=== PATIENT | female | born 1970 | race Caucasian/White ===

== ENCOUNTER → 2018-03-13 | Outpatient (CLI) | payer BC ==
--- NOTE | 2018-03-13 08:59 | MM ---
Reason for exam: screening (asymptomatic). Baseline mammogram. Physical Findings: Nurse did not find any significant physical abnormalities on exam. MG Screening Mammo w CAD Bilateral CC and MLO view(s) were taken. There are scattered fibroglandular densities. No suspicious abnormality. These results were verbally communicated with the patient and result sheet given to the patient on 03/13/18. ASSESSMENT: Negative, BI-RAD 1 RECOMMENDATION: Routine screening mammogram of both breasts in 1 year.
== END | disposition home or self-care (01) ==
LOC: RADMAMWWP 08:12
PROVIDERS: ATTEND Internal Medicine
DX: Z12.31 Encounter for screening mammogram for malignant neoplasm of breast (principal)
CPT/HCPCS: 77067

== ENCOUNTER 2018-07-26 12:50 | Emergency (ER) | payer BC, OTHER ==
[2018-07-26 13:20] VITALS: BP 118/62; PULSE 83; RESP 18; TEMP 98.3
--- NOTE | 2018-07-26 14:17 | ED ---
Lower Extremity Injury HPI - General Chief Complaint: Extremity Injury, Lower Stated Complaint: ankle injury Time Seen by Provider: 07/26/18 13:23 Source: patient, RN notes reviewed, old records reviewed Mode of arrival: wheelchair Limitations: no limitations - History of Present Illness Initial Comments: Patient is a 47-year-old female presents emergency Department chief complaint of left foot and ankle pain. Patient reports that she was walking yesterday and tripped over an uneven surface outside. Patient states that she is having significant swelling and pain to the ankle. Patient ports she's had no previous injuries to this ankle. She denies any peripheral paresthesias. Patient states that she's had no other plans or symptoms. - Related Data Home Medications Medication Instructions Recorded Confirmed Cholecalciferol [Vitamin D3] 5,000 unit PO DAILY 07/26/18 07/26/18 Citalopram Hydrobromide [CeleXA] 10 mg PO DAILY 07/26/18 07/26/18 Losartan/Hydrochlorothiazide 1 tab PO DAILY 07/26/18 07/26/18 [Losartan-Hctz 100-25 mg Tab] Spironolactone [Aldactone] 25 mg PO DAILY 07/26/18 07/26/18 Verapamil HCl [Verapamil ER] 240 mg PO DAILY 07/26/18 07/26/18 hydrALAZINE HCL 25 mg PO BID 07/26/18 07/26/18 Allergies Allergy/AdvReac Type Severity Reaction Status Date / Time No Known Allergies Allergy Verified 07/26/18 13:59 Review of Systems ROS Statement: Those systems with pertinent positive or pertinent negative responses have been documented in the HPI. ROS Other: All systems not noted in ROS Statement are negative. Past Medical History Past Medical History: Hypertension History of Any Multi-Drug Resistant Organisms: None Reported Past Surgical History: Tubal Ligation Past Psychological History: Anxiety Smoking Status: Never smoker Past Alcohol Use History: None Reported Past Drug Use History: None Reported General Exam - General Exam Comments Initial Comments: 47-year-old female. Alert and oriented. No significant distress. Limitations: no limitations General appearance: alert, in no apparent distress Head exam: Present: atraumatic, normocephalic, normal inspection Eye exam: Present: normal appearance, PERRL, EOMI. Absent: scleral icterus, conjunctival injection, periorbital swelling ENT exam: Present: normal exam, mucous membranes moist Neck exam: Present: normal inspection. Absent: tenderness, meningismus, lymphadenopathy Respiratory exam: Present: normal lung sounds bilaterally. Absent: respiratory distress, wheezes, rales, rhonchi, stridor Cardiovascular Exam: Present: regular rate, normal rhythm, normal heart sounds. Absent: systolic murmur, diastolic murmur, rubs, gallop, clicks GI/Abdominal exam: Present: soft, normal bowel sounds. Absent: distended, tenderness, guarding, rebound, rigid Extremities exam: Present: normal inspection, full ROM, normal capillary refill. Absent: tenderness, pedal edema, joint swelling, calf tenderness Left Knee exam: Present: normal inspection, full ROM Lower Leg exam: Present: normal inspection Ankle exam: Present: tenderness (over lateral and medial malleoulus), swelling, ecchymosis (over lateral malleolus). Absent: normal inspection Foot/Toe exam: Present: normal inspection, full ROM Neurovascular tendon exam: Present: no vascular compromise Gait: observed and limited by pain Back exam: Present: normal inspection Neurological exam: Present: alert, oriented X3, CN II-XII intact Psychiatric exam: Present: normal affect, normal mood Skin exam: Present: warm, dry, intact, normal color. Absent: rash Course Vital Signs 07/26/18 13:17 Temperature 98.3 F Pulse Rate 83 Respiratory 18 Rate Blood Pressure 118/62 O2 Sat by Pulse 98 Oximetry Procedures - Orthopedic Splinting/Casting Injury #1 Side: left Lower Extremity Injury Location: ankle Lower Extremity Immobilizer: stirrup splint, Bin wrap, synthetic pre-padded splint Other Orthopedic Equipment: crutches Medical Decision Making - Medical Decision Making Patient is a 47-year-old female presents emergency Department chief complaint of left foot and ankle pain. Patient reports that she was walking yesterday and tripped over an uneven surface outside. Patient states that she is having significant swelling and pain to the ankle. Patient is tender and has significant swelling over lateral malleoulus and medial malleolus. Patient has normal sensation and pulses. Patient xrays were negative for acute fracture. Patient has significant sprain. Discussed using splint to stablize ankle and to ambulate with crutches. RICE instructions and return parameters discussed. Discussed ortho followup. - Radiology Data Radiology results: report reviewed No acute fracture of ankle or foot. Disposition Clinical Impression: Left ankle sprain Disposition: HOME SELF-CARE Condition: Good Instructions: Ankle Sprain (ED) Additional Instructions: Patient is follow-up with primary care provider. Follow-up with department specialist if symptoms continue to persist. Fidelina with the splint. Return to emergency department if any alarming signs or symptoms occur. Is patient prescribed a controlled substance at d/c from ED?: No Referrals: Prosper Yen MD [Primary Care Provider] - 1-2 days Girish Hardwick MD [STAFF PHYSICIAN] - 1-2 days Time of Disposition: 16:00
--- NOTE | 2018-07-26 15:22 | XR ---
EXAMINATION TYPE: XR ankle complete LT, XR foot complete LT DATE OF EXAM: 07/26/2018 CLINICAL HISTORY: Pain and swelling for one day after fall injury. TECHNIQUE: Frontal, lateral and oblique images of the left ankle and foot are obtained. COMPARISON: None. FINDINGS: There is no acute fracture/dislocation evident in the left ankle. The ankle mortise appea rs within normal limits. There is mild to moderate soft tissue swelling. An os trigonum is seen post erior to talus. There is no acute fracture or dislocation evident in the left foot. Mild spurring from medial malleol us is present. There is tiny superior calcaneal spur and moderate size inferior calcaneal spur. Mild to moderate spurring dorsal surface midfoot level is present. Overlying soft tissue is unremarkable. IMPRESSION: There is no acute fracture or dislocation in the left ankle or foot.
== END 2018-07-26 16:05 | disposition home or self-care (01) ==
LOC: EC 12:50
DX: S93.402A Sprain of unspecified ligament of left ankle, initial encounter (principal); I10 Essential (primary) hypertension; F41.9 Anxiety disorder, unspecified; Z79.899 Other long term (current) drug therapy; W01.0XXA Fall on same level from slipping, tripping and stumbling without subsequent striking against object, initial encounter; Y93.01 Activity, walking, marching and hiking; Y92.89 Other specified places as the place of occurrence of the external cause
CPT/HCPCS: 29515; 99284

== ENCOUNTER → 2020-10-24 | Outpatient (CLI) | payer BC, OTHER ==
--- NOTE | 2020-10-26 09:58 | MM ---
Reason for exam: screening (asymptomatic). Last mammogram was performed 2 years and 7 months ago. History: Took hormonal contraceptives for 3 years. Physical Findings: A clinical breast exam by your physician is recommended on an annual basis and results should be correlated with mammographic findings. MG Screening Mammo w CAD Bilateral CC and MLO view(s) were taken. Prior study comparison: March 13, 2018, bilateral MG screening mammo w CAD. There are scattered fibroglandular densities. New nodular asymmetric densities lateral anterior right CC and medial anterior left CC. ASSESSMENT: Incomplete: need additional imaging evaluation, BI-RAD 0 RECOMMENDATION: Special view mammogram of both breasts. (3D) If lesion persists on supplemental views, image directed ultrasound is recommended. [facility] will attempt to contact patient to return for supplemental views and ultrasound if indicated.
== END | disposition home or self-care (01) ==
LOC: RADMAMWWP 16:49
PROVIDERS: ATTEND Obstetrics & Gynecology
DX: Z12.31 Encounter for screening mammogram for malignant neoplasm of breast (principal)
CPT/HCPCS: 77067

== ENCOUNTER → 2020-11-07 | Outpatient (CLI) | payer BC, OTHER ==
--- NOTE | 2020-11-07 11:30 | MM ---
Reason for exam: additional evaluation requested from abnormal screening. Last mammogram was performed less than 1 month ago. History: Took hormonal contraceptives for 3 years. Physical Findings: Nurse did not find any significant physical abnormalities on exam. MG Work Up Mamm w CAD BILAT Bilateral spot compression CC view(s) were taken. ML view(s) were taken of the right breast. LM view(s) were taken of the left breast. Prior study comparison: October 24, 2020, bilateral MG screening mammo w CAD. March 13, 2018, bilateral MG screening mammo w CAD. There are scattered fibroglandular densities. Lateral anterior asymmetric density on the right becomes less defined on spot. Medial asymmetric density on the left also becomes less defined but there is an overlying blood vessel. These results were verbally communicated with the patient and result sheet given to the patient on 11/07/20. ASSESSMENT: Incomplete: need additional imaging evaluation, BI-RAD 0 RECOMMENDATION: Ultrasound of both breasts. (right upper outer quadrant, left medial)
--- NOTE | 2020-11-07 11:34 | USB ---
Reason for exam: additional evaluation requested from abnormal screening. History: Took hormonal contraceptives for 3 years. US Breast Workup Limited NAVEEN Right complete breast ultrasound includes all four quadrants, the retroareolar region and axilla. Finding demonstrates a 3 x 2 x 3mm hypoechoic lesion at 8 o'clock 6 month follow up recommended pending biopsy results at 10 o'clock and a 18 x 5 x 5mm oval, hypoechoic lesion at 10 o'clock, appears vertically oriented in the antiradial plane, biopsy recommended. Left limited breast ultrasound including focal area of concern, retroareolar and axilla demonstrates no cystic or solid lesion seen. Scanned medial half. These results were verbally communicated with the patient and result sheet given to the patient on 11/07/20. ASSESSMENT: Suspicious, BI-RAD 4 RECOMMENDATION: Ultrasound core biopsy of the right breast. (10:00) Called Dr. Hernandez's office with mammographic findings and has scheduled an appointment for the patient for 11/25/20 at 3:[address] Anguiano. Biopsy scheduled for 11/16/20 at 7:00. PRELIMINARY REPORT CALLED AND FAXED TO DR. ANGUIANO ON 11/07/20.
== END | disposition home or self-care (01) ==
LOC: RADMAMWWP 08:38
PROVIDERS: ATTEND Obstetrics & Gynecology
DX: R92.8 Other abnormal and inconclusive findings on diagnostic imaging of breast (principal)
CPT/HCPCS: 77066

== ENCOUNTER → 2020-11-16 | Day surgery (SDC) | payer BC ==
[2020-11-16 08:04] VITALS: RESP 18
[2020-11-16 09:10] VITALS: BP 120/78; PULSE 77; TEMP 98.6
--- NOTE | 2020-11-16 12:01 | USB ---
EXAMINATION TYPE: US biopsy breast VAD RT DATE OF EXAM: 11/16/2020 CLINICAL HISTORY: R92.8 Previous Abnormal Mammogram. TECHNIQUE: Ultrasound guided vaccuum assisted core biopsy of right breast. COMPARISON: NONE FINDINGS: The ultrasound guided core biopsy procedure was explained to the patient. The risks, benefits, alternatives were discussed. An informed consent was then obtained. Timeout was performed. The patient was placed in supine positioning for imaging and for the procedure. The overlying skin was prepped with betadine and sterilely draped in usual sterile fashion. Lidocaine 1% was used as anesthetic into the skin and deeper breast tissue up to area of concern in the breast. A small skin nallely was made with surgical scalpel. Under ultrasound guidance, a 12-gauge vacuum assisted biopsy device was used to obtain 6 core samples. A biopsy clip was left in lesion. Wing clip was placed at the biopsy site. Good hemostasis was obtained with direct pressure. Discharge instructions were discussed with the patient. The patient will follow up with the referring physician for results. Postprocedure mammogram: The patient was transferred to mammography for physician ordered post procedure mammogram for clip placement verification. The clip is in the expected region of the biopsy. The patient tolerated the procedure well without any immediate complication. The patient was discharged to home in stable condition. IMPRESSION: 1. Successful ultrasound guided biopsy right breast. Pathology Results: Benign RIGHT BREAST, TEN O'CLOCK, CORE BIOPSY: Stromal fibrosis with mild usual ductal hyperplasia and rare favored minute luminal microcalcification. Negative for in situ or invasive malignancy. Recommendation Follow up ultrasound of the right breast in 6 months. JULIANO
--- NOTE | 2020-11-16 13:12 | MM ---
Reason for exam: additional evaluation requested from abnormal screening. Last mammogram was performed less than 1 month ago. History: Took hormonal contraceptives for 3 years. MG Diagnostic Mammo RT Wo CAD CC and LM view(s) were taken of the right breast. Prior study comparison: November 07, 2020, bilateral MG work up mamm w CAD BILAT. October 24, 2020, bilateral MG screening mammo w CAD. ASSESSMENT: Post procedure mammogram for marker placement RECOMMENDATION: Ultrasound of the right breast in 6 months. PENDING PATHOLOGY RESULTS.
== END ==
LOC: RADUSWWP 07:26
PROVIDERS: ATTEND Surgery
DX: N60.31 Fibrosclerosis of right breast (principal); Z79.3 Long term (current) use of hormonal contraceptives
CPT/HCPCS: 88305; 77065; 19083; A4648; J2001

== ENCOUNTER → 2020-11-25 | Outpatient (CLI) | payer BC ==
[2020-11-25 15:15] VITALS: BP 131/88; PULSE 78; RESP 18; TEMP 98.2
--- NOTE | 2020-11-25 15:48 | P.GSHP ---
History of Present Illness H&P Date: 11/25/20 Chief Complaint: Core biopsy right breast/fibrocystic changes Nemo Is a 50-year-old white female seen in consultation for Dr. Hernandez who underwent a bilateral mammogram on . The mammogram revealed scattered fibroglandular densities. An ultrasound of both breast was recommended. Ultrasound was performed on the same day. The right breast revealed at the 10 o'clock position an 18 x 5 x 5 mm hypoechoic lesion appearing vertically oriented for which core biopsy was recommended. The left breast did not reveal any lesions of concern. The patient underwent a right breast ultrasound-guided core biopsy on 2320. Pathology revealed stromal fibrosis with mild usual ductal hyperplasia and repair luminal microcalcifications. This was negative for in situ or invasive malignancy. The ultrasound was reviewed with Dr. Hilario who felt that the lesion of concern had been adequately sampled and this was benign specific. The patient had not felt anything in her breast previous to the radiographs. She does not feel anything of concern in her breast at this time. She is not complaining of any nipple discharge or skin changes. She complains of some mild breast discomfort since the biopsy but otherwise has not been complaining of any pain in her breast. She is not complaining of any nipple discharge or skin changes. She has not had any recent trauma or infection in the breast. Caffeine: 1 cup coffee/day nicotine: none lois-bromine: occasional Family history: mother: kidney and lung cancer maternal grandmother: cancer ? type paternal uncle: throat cancer Hormonal history: Menarche: 14 breast fed: no, age at first : 21 periods irregular BCP: 2 year Surgical History: tubal Medical Histoy: HTN pre-diabetic Social History: smoke: none alcohol: seasonal drugs: none - Constitutional Constitutional: Denies chills, Denies fever - EENT Eyes: denies blurred vision, denies pain Ears: deny: decreased hearing, tinnitus Ears, nose, mouth and throat: Denies headache, Denies sore throat - Breasts Breasts: bilateral: as per HPI - Cardiovascular Cardiovascular: Denies chest pain, Denies shortness of breath - Respiratory Respiratory: Denies cough, Denies 7 - Gastrointestinal Gastrointestinal: Denies abdominal pain, Denies diarrhea, Denies nausea, Denies vomiting - Genitourinary (Female) Genitourinary: Reports kidney stones, Denies dysuria, Denies hematuria - Menstruation Menstruation: Reports period normal - Musculoskeletal Musculoskeletal: Denies myalgias - Integumentary Integumentary: Denies pruritus, Denies rash - Neurological Neurological: Reports numbness, Denies weakness - Psychiatric Psychiatric: Reports anxiety, Reports depression - Endocrine Endocrine: Denies fatigue, Denies weight change - Hematologic/Lymphatic Hematologic/Lymphatic: Reports as per HPI - Allergic/Immunologic Allergic/Immunologic: Reports as per HPI Past Medical History Past Medical History: Hypertension History of Any Multi-Drug Resistant Organisms: None Reported Past Surgical History: Tubal Ligation Past Anesthesia/Blood Transfusion Reactions: No Reported Reaction Past Psychological History: Anxiety, Depression Smoking Status: Never smoker Past Alcohol Use History: Occasional Past Drug Use History: None Reported Medications and Allergies Home Medications Medication Instructions Recorded Confirmed Type Cholecalciferol [Vitamin D3] 2,000 unit PO DAILY 07/26/18 11/25/20 History Citalopram Hydrobromide [CeleXA] 10 mg PO DAILY 07/26/18 11/25/20 History Losartan/Hydrochlorothiazide 1 tab PO DAILY 07/26/18 11/25/20 History [Losartan-Hctz 100-25 mg Tab] Spironolactone [Aldactone] 25 mg PO DAILY 07/26/18 11/25/20 History Verapamil HCl [Verapamil ER] 240 mg PO DAILY 07/26/18 11/25/20 History hydrALAZINE HCL 25 mg PO BID 07/26/18 11/25/20 History [place]-3 Fatty Acids/Fish Oil [Fish 1 each PO DAILY 11/08/20 11/25/20 History Oil 1,000 mg Softgel] Allergies Allergy/AdvReac Type Severity Reaction Status Date / Time No Known Allergies Allergy Verified 11/25/20 15:11 Surgical - Exam Vital Signs Temp Pulse Resp BP Pulse Ox 98.2 F 78 18 131/88 100 11/25/20 15:13 11/25/20 15:13 11/25/20 15:13 11/25/20 15:13 11/25/20 15:13 BMI 48.5 - General no distress - Eyes normal ocular movement - ENT normal nares, no hearing loss - Neck no masses, trachea midline - Respiratory normal expansion, normal respiratory effort, clear to auscultation - Cardiovascular Rhythm: regular Heart Sounds: normal: S1, S2 - Abdomen Abdomen: soft, bowel sounds - Integumentary normal turgor - Neurologic no disoriented, no combative - Musculoskeletal normal gait - Psychiatric oriented to time, oriented to person, oriented to place, speech is normal, memory intact breast exam: BRA: 42C inspection: Bilateral grade 2/3 ptosis Palpation: Right breast: Multi positional exam fibrocystic changes, biopsy site no evidence of infection or hematoma mild ecchymosis Right axilla: No adenopathy of concern Left breast: Multiple positional exam fibrocystic changes no dominant masses or nodules of concern Left axilla: No adenopathy of concern Results Mammogram and ultrasound results reviewed, review of ultrasound with radiology shows that the needle was in the area of concern and this is benign and concordant Assessment and Plan Assessment: Impression: 1. Patient status post ultrasound core biopsy lesion in the right breast this is benign and felt to be benign concordant 2. Fibrocystic breast changes 3. Family history of cancer 4. Hypertension 5. Prediabetic 6. Probable perimenopausal some fluctuation in most recent menstrual. 7. Patient does drink caffeine Plan: 1.I discussed lifestyle modifications including omitting caffeine, the fact that she is most likely perimenopausal and has hormonal fluctuations, and possibly decreasing her BMI. She will consider these things 2. Repeat right breast mammogram and ultrasound in 6 months with physician exam at that time Cc: Dr. Hernandez Encounter 40 minutes, time spent in reviewing medical records, physical exam, and counselling.
== END | disposition home or self-care (01) ==
LOC: WWCWWP 15:03
PROVIDERS: ATTEND Surgery
DX: Z53.9 Procedure and treatment not carried out, unspecified reason (principal)

== ENCOUNTER → 2021-05-15 | Outpatient (CLI) | payer BC ==
--- NOTE | 2021-05-15 11:22 | MM ---
Reason for exam: follow-up at short interval from prior study. Last mammogram was performed 6 months ago. History: Benign US biopsy breast VAD RT of the right breast, November 16, 2020. Took hormonal contraceptives for 3 years. Physical Findings: Nurse did not find any significant physical abnormalities on exam. MG Diagnostic Mammo RT w CAD CC and MLO view(s) were taken of the right breast. Prior study comparison: November 16, 2020, right breast MG diagnostic mammo RT wo CAD. November 07, 2020, bilateral MG work up mamm w CAD BILAT. There are scattered fibroglandular densities. No significant new findings when compared with previous films. These results were verbally communicated with the patient and result sheet given to the patient on 05/15/21. ASSESSMENT: Incomplete: need additional imaging evaluation, BI-RAD 0 RECOMMENDATION: Ultrasound of the right breast.
--- NOTE | 2021-05-15 11:23 | USB ---
Reason for exam: additional evaluation requested from abnormal screening. History: Benign US biopsy breast VAD RT of the right breast, November 16, 2020. Took hormonal contraceptives for 3 years. US Breast Limited RT Technologist: Bren Flood Right limited breast ultrasound including focal area of concern, retroareolar and axilla demonstrates no cystic or solid lesion seen. Scanned 9-12 o'clock. These results were verbally communicated with the patient and result sheet given to the patient on 05/15/21. ASSESSMENT: Negative, BI-RAD 1 RECOMMENDATION: Return to routine screening mammogram schedule for both breasts. Back on schedule.
== END | disposition home or self-care (01) ==
LOC: RADMAMWWP 09:38
PROVIDERS: ATTEND Surgery
DX: R92.8 Other abnormal and inconclusive findings on diagnostic imaging of breast (principal); Z79.3 Long term (current) use of hormonal contraceptives
CPT/HCPCS: 77065

== ENCOUNTER → 2021-06-16 | Outpatient (CLI) | payer BC ==
[2021-06-16 09:54] VITALS: BP 109/75; PULSE 88; RESP 12; TEMP 98.2
--- NOTE | 2021-06-16 10:28 | P.PN ---
Subjective Progress Note Date: 06/16/21 Principal diagnosis: status post right breast core biopsy on 11-16-20 Nemo Is a 50-year-old white female. She underwent a right breast ultrasound-guided core biopsy on 2320. Pathology revealed stromal fibrosis with mild usual ductal hyperplasia and repair luminal microcalcifications. This was negative for in situ or invasive malignancy. The ultrasound was reviewed with Dr. Hilario who felt that the lesion of concern had been adequately sampled and this was benign specific. She does not feel anything of concern in her breast at this time. She is not complaining of any nipple discharge or skin changes. She is not complaining of any nipple discharge or skin changes. She has not had any recent trauma or infection in the breast. She had a right breast mammogram performed on which is felt to be incomplete and a right breast ultrasound was performed on the same date. This was felt to be benign and the assessment was negative benign BIRADS 1. Return to routine bilateral mammogram in October. Caffeine: 1 cup coffee/day nicotine: none lois-bromine: occasional Family history: mother: kidney and lung cancer maternal grandmother: cancer ? type paternal uncle: throat cancer Hormonal history: Menarche: 14 breast fed: no, age at first : 21 periods irregular BCP: 2 year Surgical History: tubal Medical Histoy: HTN pre-diabetic Social History: smoke: none alcohol: seasonal drugs: none - Constitutional Constitutional: Denies chills, Denies fever - EENT Eyes: denies blurred vision, denies pain Ears: deny: decreased hearing, tinnitus Ears, nose, mouth and throat: Denies headache, Denies sore throat - Breasts Breasts: bilateral: as per HPI - Cardiovascular Cardiovascular: Denies chest pain, Denies shortness of breath - Respiratory Respiratory: Denies cough - Gastrointestinal Gastrointestinal: Denies abdominal pain, Denies diarrhea, Denies nausea, Denies vomiting - Genitourinary (Female) Genitourinary: Reports kidney stones, Denies dysuria, Denies hematuria - Menstruation Menstruation: Reports period normal - Musculoskeletal Musculoskeletal: Denies myalgias - Integumentary Integumentary: Denies pruritus, Denies rash - Neurological Neurological: Reports numbness, Denies weakness - Psychiatric Psychiatric: Reports anxiety, Reports depression - Endocrine Endocrine: Denies fatigue, Denies weight change - Hematologic/Lymphatic Hematologic/Lymphatic: Reports as per HPI - Allergic/Immunologic Allergic/Immunologic: Reports as per HPI Objective - Vital Signs Vital signs: Vital Signs Temp 98.2 F 06/16/21 09:45 Pulse 88 06/16/21 09:45 Resp 12 06/16/21 09:45 BP 109/75 06/16/21 09:45 Pulse Ox 98 06/16/21 09:45 Intake & Output 06/15/21 06/16/21 06/16/21 18:59 06:59 18:59 Weight 113.398 kg - Exam BMI 45.7 - Constitutional General appearance: Present: cooperative - EENT Eyes: Present: EOMI ENT: Present: hearing grossly normal - Neck Neck: Present: normal ROM - Respiratory Respiratory: bilateral: CTA - Cardiovascular Heart sounds: normal: S1, S2 - Integumentary Integumentary: Present: normal turgor - Musculoskeletal Musculoskeletal: Present: gait normal - Psychiatric Psychiatric: Present: A&O x's 3, appropriate affect, intact judgment & insight - Additional findings Additional findings: Breast exam: BRA: 42C inspection: Bilateral grade 3 ptosis Palpation: Right breast: Multiple positional exam fibrocystic changes no dominant masses or nodules of concern Right axilla: No adenopathy of concern Left breast: Multi-positional exam fibrocystic changes predominantly masses or nodules of concern Left axilla: No adenopathy of concern Assessment and Plan Assessment: Impression: 1. Hypertension 2. Prediabetic 3. Fibrocystic breast changes 4. Recent right breast mammogram and ultrasound benign BIRADS 1 Plan: 1. Repeat bilateral mammogram in October with physician exam at that time 2. Patient to call if any questions or concerns Cc: Dr. Hernandez, Dr. Yen
== END ==
LOC: WWCWWP 09:37
PROVIDERS: ATTEND Surgery
DX: N60.11 Diffuse cystic mastopathy of right breast (principal); I10 Essential (primary) hypertension; R73.03 Prediabetes

== ENCOUNTER → 2021-11-10 | Outpatient (CLI) | payer BC ==
--- NOTE | 2021-11-10 08:20 | MM ---
Reason for exam: additional evaluation requested from prior study. Last mammogram was performed 6 months ago. History: Benign US biopsy breast VAD RT of the right breast, November 16, 2020. Took hormonal contraceptives for 3 years. Physical Findings: Nurse did not find any significant physical abnormalities on exam. MG Diagnostic Mammo w CAD NAVEEN Bilateral CC and MLO view(s) were taken. Prior study comparison: May 15, 2021, right breast MG diagnostic mammo RT w CAD. November 16, 2020, right breast MG diagnostic mammo RT wo CAD. There are scattered fibroglandular densities. Previous mammotome biopsy in the right breast. Focal asymmetry right breast. No significant new findings when compared with previous films. These results were verbally communicated with the patient and result sheet given to the patient on 11/10/21. ASSESSMENT: Benign, BI-RAD 2 RECOMMENDATION: Routine screening mammogram of both breasts in 1 year.
== END | disposition home or self-care (01) ==
LOC: RADMAMWWP 07:20
PROVIDERS: ATTEND Surgery
DX: R92.8 Other abnormal and inconclusive findings on diagnostic imaging of breast (principal)
CPT/HCPCS: 77066

== ENCOUNTER → 2021-11-16 | Outpatient (CLI) | payer BC ==
[2021-11-16 11:28] VITALS: BP 113/79; PULSE 63; RESP 16; TEMP 97.5
--- NOTE | 2021-11-16 12:15 | P.PN ---
Subjective Progress Note Date: 11/16/21 Principal diagnosis: fibrocystic breast changes status post right breast core biopsy on 11-16-20 Nemo Is a 51-year-old white female. She underwent a right breast ultrasound-guided core biopsy on 2320. Pathology revealed stromal fibrosis with mild usual ductal hyperplasia and repair luminal microcalcifications. This was negative for in situ or invasive malignancy. The ultrasound was reviewed with Dr. Hilario who felt that the lesion of concern had been adequately sampled and this was benign specific. She had a right breast mammogram performed on 8220 which is felt to be incomplete and a right breast ultrasound was performed on the same date. This was felt to be benign and the assessment was negative benign BIRADS 1. Return to routine bilateral mammogram in October. She had a bilateral mammogram on 11-10-21 which was benign BIRAD 2. She does not feel anything of concern in her breast at this time. She is not complaining of any nipple discharge or skin changes. She is not complaining of any nipple discharge or skin changes. She has not had any recent trauma or infection in the breast. Caffeine: 1 cup coffee/day nicotine: none lois-bromine: occasional Family history: mother: kidney and lung cancer maternal grandmother: cancer ? type paternal uncle: throat cancer Hormonal history: Menarche: 14 breast fed: no, age at first : 21 periods irregular BCP: 2 year Surgical History: tubal Medical Histoy: HTN pre-diabetic Social History: smoke: none alcohol: seasonal drugs: none - Constitutional Constitutional: Denies chills, Denies fever - EENT Eyes: denies blurred vision, denies pain Ears: deny: decreased hearing, tinnitus Ears, nose, mouth and throat: Denies headache, Denies sore throat - Breasts Breasts: bilateral: as per HPI - Cardiovascular Cardiovascular: Denies chest pain, Denies shortness of breath - Respiratory Respiratory: Denies cough - Gastrointestinal Gastrointestinal: Denies abdominal pain, Denies diarrhea, Denies nausea, Denies vomiting - Genitourinary (Female) Genitourinary: Reports kidney stones, Denies dysuria, Denies hematuria - Menstruation Menstruation: Reports period normal - Musculoskeletal Musculoskeletal: Denies myalgias - Integumentary Integumentary: Denies pruritus, Denies rash - Neurological Neurological: Reports numbness, Denies weakness - Psychiatric Psychiatric: Reports anxiety, Reports depression - Endocrine Endocrine: Denies fatigue, Denies weight change - Hematologic/Lymphatic Hematologic/Lymphatic: Reports as per HPI - Allergic/Immunologic Allergic/Immunologic: Reports as per HPI Objective - Vital Signs Vital signs: Vital Signs Temp 97.5 F L 11/16/21 11:19 Pulse 63 11/16/21 11:19 Resp 16 11/16/21 11:19 BP 113/79 11/16/21 11:19 Pulse Ox Intake & Output 11/15/21 11/16/21 11/16/21 18:59 06:59 18:59 Weight 106.594 kg - Exam BMI 43 - Constitutional General appearance: Present: cooperative - EENT ENT: Present: hearing grossly normal - Neck Neck: Present: normal ROM - Respiratory Respiratory: bilateral: CTA - Cardiovascular Rhythm: regular Heart sounds: normal: S1, S2 - Integumentary Integumentary: Present: normal turgor - Musculoskeletal Musculoskeletal: Present: gait normal - Psychiatric Psychiatric: Present: A&O x's 3, appropriate affect, intact judgment & insight - Additional findings Additional findings: Breast Exam: BRA: 42C inspection: Bilateral grade 2 ptosis Palpation: Right breast: Multi-positional exam fibrocystic changes no dominant masses or nodules of concern Right axilla: No adenopathy of concern Left breast: Multi-positional exam fibrocystic changes no dominant masses or nodules of concern Left axilla: No adenopathy of concern Assessment and Plan Assessment: Impression: Hypertension Prediabetic Fibrocystic breast changes Recent bilateral mammogram 120 822 benign BIRADS 2 Plan: Repeat bilateral mammogram in 1 year Monthly breast self exams Patient to call if any questions or concerns otherwise follow-up after mammogram in 1 year CC: Dr. Yen
== END ==
LOC: WWCWWP 10:44
PROVIDERS: ATTEND Surgery
DX: N60.11 Diffuse cystic mastopathy of right breast (principal); I10 Essential (primary) hypertension; R73.03 Prediabetes; Z79.899 Other long term (current) drug therapy

== ENCOUNTER → 2022-11-12 | Outpatient (CLI) | payer BC ==
--- NOTE | 2022-11-13 08:39 | MM ---
Reason for Exam: Screening (asymptomatic). Last screening mammogram was performed 12 month(s) ago. Patient History: Menarche at age 13. First Full-Term at age 21. Patient used Hormonal Contraceptives for 3 years. 11/16/2020, Benign Core Biopsy on the right side. Last menstrual period: 11/03/2022 Risk Values: Renetta 5 year model risk: 1.1%. NCI Lifetime model risk: 9.3%. Prior Study Comparison: 11/16/2020 Right Diagnostic Mammogram, [facility]. 05/15/2021 Right Diagnostic Mammogram, [facility]. 11/10/2021 Bilateral Diagnostic Mammogram, [facility]. Tissue Density: There are scattered fibroglandular densities. Findings: Analyzed By CAD. Right breast biopsy clip. There is no suspicious group of microcalcifications or new suspicious mass in either breast. Overall Assessment: Negative, BI-RAD 1 Management: Screening Mammogram of both breasts in 1 year. A clinical breast exam by your physician is recommended on an annual basis and results should be correlated with mammographic findings. [facility] will attempt to contact patient to return for supplemental views and ultrasound if indicated. Electronically signed and approved by: Harry Mejia DO
== END | disposition home or self-care (01) ==
LOC: RADMAMWWP 09:16
PROVIDERS: ATTEND Surgery
DX: Z12.31 Encounter for screening mammogram for malignant neoplasm of breast (principal)
CPT/HCPCS: 77067

== ENCOUNTER → 2023-11-13 | Outpatient (CLI) | payer BC ==
--- NOTE | 2023-11-14 08:50 | MM ---
Reason for Exam: Screening (asymptomatic). Last screening mammogram was performed 12 month(s) ago. Patient History: Menarche at age 13. First Full-Term at age 21. Patient used Hormonal Contraceptives for 3 years. 11/16/2020, Benign Core Biopsy on the right side. Last menstrual period: Risk Values: Renetta 5 year model risk: 1.1%. NCI Lifetime model risk: 9.1%. Prior Study Comparison: 05/15/2021 Right Diagnostic Mammogram, [facility]. 11/10/2021 Bilateral Diagnostic Mammogram, [facility]. 11/12/2022 Bilateral MG screening mammo w CAD, [facility]. Tissue Density: There are scattered fibroglandular densities. Findings: Analyzed By CAD. Right breast biopsy clip. There is no suspicious group of microcalcifications or new suspicious mass. Overall Assessment: Negative, BI-RAD 1 Management: Screening Mammogram of both breasts in [address] [facility] will attempt to contact patient to return for supplemental views and ultrasound if indicated. Patient should continue monthly self-breast exams. A clinical breast exam by your physician is recommended on an annual basis. This exam should not preclude additional follow-up of suspicious palpable abnormalities. Note on Renetta scores and lifetime risk: 1. A Renetta score greater than 3% is considered moderate risk. If this is the case, consider specialist referral to assess eligibility for a risk reducing agent. 2. If overall lifetime risk for the development of breast cancer is 20% or higher, the patient may qualify for future screening with alternating mammogram and breast MRI. Electronically signed and approved by: Harry Mejia DO
== END | disposition home or self-care (01) ==
LOC: RADMAMWWP 09:25
PROVIDERS: ATTEND Surgery
DX: Z12.31 Encounter for screening mammogram for malignant neoplasm of breast (principal)
CPT/HCPCS: 77067

== ENCOUNTER → 2023-11-15 | Outpatient (CLI) | payer BC ==
--- NOTE | 2023-11-15 10:26 | P.PN ---
Subjective Progress Note Date: 11/15/23 fibrocystic breast changes status post right breast core biopsy on 11-16-20 Nemo Is a 53-year-old white female. She underwent a right breast ultrasound-guided core biopsy on 2320. Pathology revealed stromal fibrosis with mild usual ductal hyperplasia and luminal microcalcifications. This was negative for in situ or invasive malignancy. The ultrasound was reviewed with Dr. Hilario who felt that the lesion of concern had been adequately sampled and this was benign specific. She had a right breast mammogram performed on 8220 which is felt to be incomplete and a right breast ultrasound was performed on the same date. This was felt to be benign and the assessment was negative benign BIRADS 1. Return to routine bilateral mammogram in October. She had a bilateral mammogram on 11-13-23 which was benign BIRAD 1. She does not feel anything of concern in her breast at this time. She is not complaining of any nipple discharge or skin changes. She is not complaining of any nipple discharge or skin changes. She has not had any recent trauma or infection in the breast. Kevin Risk 1.1% 5 year Caffeine: 1 cup coffee/day nicotine: none lois-bromine: occasional Family history: mother: kidney and lung cancer maternal grandmother: cancer ? type paternal uncle: throat cancer Hormonal history: Menarche: 14 breast fed: no, age at first : 21 periods irregular BCP: 2 year Surgical History: tubal right parathyoird resection Medical History: HTN pre-diabetic Social History: smoke: none alcohol: seasonal drugs: none - Constitutional Constitutional: Denies chills, Denies fever - EENT Eyes: denies blurred vision, denies pain Ears: deny: decreased hearing, tinnitus Ears, nose, mouth and throat: Denies headache, Denies sore throat - Breasts Breasts: bilateral: as per HPI - Cardiovascular Cardiovascular: Denies chest pain, Denies shortness of breath - Respiratory Respiratory: Denies cough - Gastrointestinal Gastrointestinal: Denies abdominal pain, Denies diarrhea, Denies nausea, Denies vomiting - Genitourinary (Female) Genitourinary: Reports kidney stones, Denies dysuria, Denies hematuria - Menstruation Menstruation: Reports period normal - Musculoskeletal Musculoskeletal: Denies myalgias - Integumentary Integumentary: Denies pruritus, Denies rash - Neurological Neurological: Reports numbness, Denies weakness - Psychiatric Psychiatric: Reports anxiety, Reports depression - Endocrine Endocrine: Denies fatigue, Denies weight change - Hematologic/Lymphatic Hematologic/Lymphatic: Reports as per HPI - Allergic/Immunologic Allergic/Immunologic: Reports as per HPI Objective - Vital Signs Vital signs: Vital Signs Temp 97.8 F 11/15/23 10:15 Pulse 82 11/15/23 10:15 Resp 17 11/15/23 10:15 BP 112/70 11/15/23 10:15 Pulse Ox 100 11/15/23 10:15 FiO2 Intake & Output 11/14/23 11/15/23 11/15/23 18:59 06:59 18:59 Weight 87.997 kg - Constitutional General appearance: Present: cooperative - EENT Eyes: Present: EOMI ENT: Present: hearing grossly normal - Neck Neck: Present: normal ROM - Respiratory Respiratory: bilateral: CTA - Cardiovascular Rhythm: regular Heart sounds: normal: S1, S2 - Integumentary Integumentary: Present: normal turgor - Musculoskeletal Musculoskeletal: Present: gait normal - Psychiatric Psychiatric: Present: A&O x's 3, appropriate affect, intact judgment & insight - Additional findings Additional findings: Breast Exam: BRA: 42C inspection: Bilateral grade 2/3 ptosis Palpation: Right breast: Multi-positional exam fibrocystic changes no dominant masses or nodules of concern Right axilla: No adenopathy of concern Left breast: Multi-positional exam fibrocystic changes no dominant masses or nodules of concern Left axilla: No adenopathy of concern Assessment and Plan Assessment: Impression: Hypertension Prediabetic Fibrocystic breast changes Recent bilateral mammogram 11-13-23 benign BIRADS 1 Plan: Repeat bilateral mammogram in 1 year Monthly breast self exams Patient to call if any questions or concerns otherwise follow-up after mammogram in 1 year CC: Dr. Yen
[2023-11-15 10:42] VITALS: BP 112/70; PULSE 82; RESP 17; TEMP 97.8
== END ==
LOC: WWCWWP 09:35
PROVIDERS: ATTEND Surgery
DX: N60.11 Diffuse cystic mastopathy of right breast (principal); I10 Essential (primary) hypertension; R73.03 Prediabetes

== ENCOUNTER → 2025-02-01 | Outpatient (CLI) | payer OTHER ==
--- NOTE | 2025-02-01 08:01 | MM ---
Reason for Exam: Screening (asymptomatic). Last mammogram was performed 1 year(s) and 3 month(s) ago. Patient History: Menarche at age 13. First Full-Term at age 21. Postmenopausal. Patient used Hormonal Contraceptives for 3 years. 11/16/2020, Benign Core Biopsy on the right side. Risk Values: Renetta 5 year model risk: 1.2%. NCI Lifetime model risk: 9.0%. Prior Study Comparison: 11/10/2021 Bilateral Diagnostic Mammogram, [facility]. 11/12/2022 Bilateral MG screening mammo w CAD, [facility]. 11/13/2023 Bilateral MG screening mammo w CAD, [facility]. Tissue Density: The breasts are heterogeneously dense, which may obscure small masses. Findings: Analyzed By CAD. There is no suspicious group of microcalcifications or new suspicious mass in either breast. Overall Assessment: Negative, BI-RAD 1 Management: Screening Mammogram of both breasts in 1 year. . Patient should continue monthly self-breast exams. A clinical breast exam by your physician is recommended on an annual basis. This exam should not preclude additional follow-up of suspicious palpable abnormalities. Note on Renetta scores and lifetime risk: 1. A Renetta score greater than 3% is considered moderate risk. If this is the case, consider specialist referral to assess eligibility for a risk reducing agent. 2. If overall lifetime risk for the development of breast cancer is 20% or higher, the patient may qualify for future screening with alternating mammogram and breast MRI. [facility], , 02/01/2025 7:58 AM. Electronically signed and approved by: Hans Hilario M.D. Radiologis
== END | disposition home or self-care (01) ==
LOC: RADMAMWWP 07:01
PROVIDERS: ATTEND Surgery
DX: Z12.31 Encounter for screening mammogram for malignant neoplasm of breast (principal); R92.323 Mammographic fibroglandular density, bilateral breasts; Z78.0 Asymptomatic menopausal state; Z92.0 Personal history of contraception
CPT/HCPCS: 77063; 77067